=== PATIENT | female | born 1980 | race Caucasian/White ===

== ENCOUNTER → 2020-05-04 | Day surgery (SDC) | payer OTHER ==
[~2020-05-04] MED LIST: FLOMAX0.4 MG PO; KETOROLAC TROME10 MG PO; NORCO 5-325 TA1 EAC1 PO; NORCO 5-325 TA1 EACH PO; PROTONIX 40MG T40 MG PO
[2020-05-04 08:02] LABS: HCG (URINE) SCREEN NEGATIVE (NEGATIVE)
== END | disposition home or self-care (01) ==
LOC: FAS 07:41
PROVIDERS: Anesthesiology
DX: D12.0 Benign neoplasm of cecum (principal); K21.00 Gastro-esophageal reflux disease with esophagitis, without bleeding; K31.89 Other diseases of stomach and duodenum; K29.80 Duodenitis without bleeding; F17.200 Nicotine dependence, unspecified, uncomplicated; Z80.0 Family history of malignant neoplasm of digestive organs; Z88.2 Allergy status to sulfonamides; Z90.49 Acquired absence of other specified parts of digestive tract; Z20.822 Contact with and (suspected) exposure to COVID-19
CPT/HCPCS: 84703; J2250; J2704; J7120